=== PATIENT | male | born 1950 | race Caucasian/White ===

== ENCOUNTER 2018-02-06 06:26 | Inpatient (IN) ==
[2018-02-02 14:49] LABS: Appearance,Urine CLEAR; Bilirubin,Urine NEG (NEG); Color,Urine YELLOW; Glucose,Urine (UA) NEGATIVE (NEG); Leukocyte Esterase,Urine NEG /uL (NEG); Protein,Urine NEG (NEG); Specific Gravity,Urine 1.025 (1.000-1.035); Urine Blood NEG mg/dL (<0.03); Urobilinogen,Urine NEG (NEG)
[2018-02-02 15:59] LABS: Basophils # (Auto) 0.1 K/mcL (0.0-0.3); Basophils % (Auto) 0.7 % (0.0-2.0); Eosinophils # (Auto) 0.2 K/mcL (0.0-0.7); Eosinophils % (Auto) 3.2 % (0.0-7.0); Granulocytes % (Auto) 64.1 % (38.0-78.0); Lymphocytes # (Auto) 1.6 K/mcL (1.5-4.8); Lymphocytes % (Auto) 23.7 % (15.5-49.0); Mean Corpuscular HGB Conc 34.6 g/dL (31.0-36.0); Mean Corpuscular Hemoglobin 34.2 pg (26.0-34.0); Monocytes # (Auto) 0.6 K/mcL (0.1-0.9); Monocytes % (Auto) 8.3 % (1.0-12.0); Platelet Count 225 K/mcL (140-440); RBC 4.21 M/mcL (4.50-5.90); Red Cell Distribution Width 12.5 % (11.5-14.5)
[2018-02-02 17:13] LABS: Blood Urea Nitrogen 14 mg/dl (8-23)
[2018-02-06] MEDS ORDERED: CELECOXIB 200 MG CAPSULE PO SCH (07:00)
[2018-02-06] MEDS ORDERED: oxyCODONE 10 MG TAB.ER.12H PO SCH (07:00)
[2018-02-06] MEDS ORDERED: 0.9 % SODIUM CHLORIDE 9 ML, KETOROLAC 30 MG, ROPIVACAINE HCL/PF 49.5 ML, EPINEPHrine 0.... IJ SCH (07:00)
[2018-02-06] MEDS ORDERED: ceFAZolin 1 GM VIAL IV SCH (07:00)
[2018-02-06] MEDS ORDERED: PREGABALIN 75 MG CAPSULE PO SCH (07:00)
[2018-02-06] MEDS ORDERED: ONDANSETRON 4 MG/2 ML VIAL IV ONE (09:15)
[2018-02-06] MEDS ORDERED: fentaNYL 100 MCG/2 ML VIAL IV ONE (09:15)
[2018-02-06] MEDS ORDERED: ROPIVACAINE HCL/PF 20 ML VIAL IJ ONE (09:15)
[2018-02-06] MEDS ORDERED: LIDOCAINE HCL/PF 100 MG/5 ML SYRINGE IV ONE (09:15)
[2018-02-06] MEDS ORDERED: TRANEXAMIC ACID 1,000 MG/10 ML VIAL IV ONE ×2 (09:15→10:53)
[2018-02-06] MEDS ORDERED: PROPOFOL 200 MG/20 ML VIAL IV ONE (09:15)
[2018-02-06] MEDS ORDERED: MIDAZOLAM 5 MG/5 ML VIAL IV ONE (09:15)
[2018-02-06] MEDS ORDERED: DEXAMETHASONE 10 MG/ML VIAL IV ONE (09:15)
[2018-02-06] MEDS ORDERED: GLYCOPYRROLATE 0.2 MG/ML VIAL IV ONE (09:15)
[2018-02-06] MEDS ORDERED: PHENYLEPHRINE 10 MG/ML VIAL IV ONE (09:15)
[2018-02-06] MEDS ORDERED: GENTAMICIN SULFATE 800 MG/20 ML VIAL IR ONE (09:48)
[2018-02-06] MEDS ORDERED: BISACODYL 10 MG SUPP.RECT PR PRN (10:53)
[2018-02-06] MEDS ORDERED: MAGNESIUM HYDROXIDE 30 ML ORAL.SUSP PO PRN (10:53)
[2018-02-06] MEDS ORDERED: ACETAMINOPHEN 325 MG TABLET PO PRN (10:53)
[2018-02-06] MEDS ORDERED: POLYETHYLENE GLYCOL 3350 17 GM PACKET PO PRN (10:53)
[2018-02-06] MEDS ORDERED: FLEETS ADULT ENEMA PR PRN (10:53)
[2018-02-06] MEDS ORDERED: METHOCARBAMOL 750 MG TABLET PO PRN (10:53)
[2018-02-06] MEDS ORDERED: ONDANSETRON 4 MG/2 ML VIAL IV PRN (10:53)
[2018-02-06] MEDS ORDERED: BENZOCAINE/MENTHOL 1 LOZENGE PO PRN (10:53)
[2018-02-06] MEDS ORDERED: ONDANSETRON ODT 4 MG TABLET SL PRN (10:53)
--- NOTE | 2018-02-06 10:53 | Brief Operative Note ---
Date of procedure: 02/06/18 Pre-op diagnosis: right knee osteoarthritis Post-op diagnosis: same Procedure: right total knee arthroplasty Grafts/Implants: Yes Anesthesia: spinal Complications: none Surgeon: Trevor Wu Scale Installer: Riri Briceño Estimated blood loss (cc): 150 Tourniquet Time (Minutes): 60 Specimens Removed/Pathology: none sent Condition: stable Disposition: PACU
--- NOTE | 2018-02-06 11:11 | Operative Note ---
DATE OF OPERATION: 02/06/2018 PREOPERATIVE DIAGNOSIS: Degenerative joint disease, right knee. POSTOPERATIVE DIAGNOSIS: Degenerative joint disease, right knee. PROCEDURE: Right total knee arthroplasty. SURGEON: Lexis Wu M.D. FARMWORKER MACHINE SURGEON: Riri Briceño PA-C. ANESTHESIA: Spinal with LMA assist. ESTIMATED BLOOD LOSS: 150 mL. COMPLICATIONS: None noted. SPECIMENS REMOVED: None. DRAINS: None. TOURNIQUET TIME: 60 minutes at 300 mmHg. IMPLANTS: DePuy Attune femoral posterior stabilized size 8 right, cemented; DePuy Attune patella medialized dome 38 mm cemented AOX; DePuy Attune tibial fixed bearing size 7, cemented; DePuy Attune tibial insert fixed bearing posterior stabilized size 8, 10 mm AOX. INDICATIONS: The patient has had a long-standing history of worsening pain in the knee that has failed conservative treatment. Radiographs have confirmed advanced degenerative joint disease. After a long discussion about treatment options, the patient elected to proceed with a knee arthroplasty. The risks and benefits were discussed with the patient in detail including, but not limited to, the risks of anesthesia, problems with the heart or lungs related to anesthesia, infection, compromise or injury to the nerves and blood vessels, deep venous thrombosis, pulmonary embolism, pneumonia, continued pain after surgery, worsening pain or symptoms after surgery, swelling, loss of motion, instability, leg length discrepancy, and need for repeat surgery. DESCRIPTION OF PROCEDURE: The patient was seen in the pre-anesthesia waiting room where all questions were answered and the correct side and site were identified and marked. The patient was transferred to the operating room and administered the anesthetic and given pre-operative antibiotics. A time-out was then called. The extremity was prepped and draped, exsanguinated, and the tourniquet was inflated to 300 mmHg. A midline skin incision was then made with a standard medial parapatellar arthrotomy. Debridement of the menisci, ACL, and PCL was performed followed by balancing releases in the medial lateral plane. We then established intramedullary access to both the femur and tibia in a standard fashion. The femoral guide corky was initially placed with the distal femoral guide, pinned into place, and the distal femoral cut was performed and checked with a flat plate. We then turned our attention to the tibia. The intramedullary guide was placed with the proximal tibial cutting block. The block was appropriately positioned off the affected side, varus and valgus was checked with the extra-medullary guide, and the block was pinned into place. The proximal tibial cut was performed and the tibia was prepared for the tibial implant with appropriate rotation. The tibia, femur, and posterior compartment were debrided of osteophytes, loose bodies, and meniscal fragments We then used the gap balancing technique to balance extension with the first two cuts and good balancing was obtained with a 10 millimeter gap block. We turned our attention back to the femur and used the referencing block and implant to size appropriately. Using the gap balancing technique for the flexion space we set our rotation of the femur off the tibial cut. Anesthesia gave the patient 1 gram of Tranexamic Acid via an intravenous route. We placed the 4 in 1 cutting block and made anterior, posterior, and chamfer cuts. Box plasty cuts were then made in a standard fashion for the posterior stabilized prosthesis. We then completed osteophyte release and posterior capsule release from the posterior compartment. Trials were placed and we chose the polyethylene insert thickness that provided the best stability in all planes. With the trials in place, we did a measured resection for a resurfacing patella. We sized the patella and placed the patella trial and performed a lateral facetectomy with the saw and rongeur. Good tracking was obtained. We removed all trials, irrigated and dried all cut surfaces. We cemented the components into place including tibia, femur and patella. We placed a trial liner and held the knee in full extension with the patella compressed while the cement cured. We then removed all excess cement and placed the final polyethylene tibiofemoral component. Irrigation with 3 liters of antibiotic saline was then performed using jet-lavage. We let the tourniquet down and coagulated bleeding vessels. We injected a 100 cubic centimeter volume including Ropivacaine 49.25 cubic centimeters at 5 milligrams per cubic centimeter, Ketorolac 30 milligrams, and Epinephrine 0.5 milligrams into 100 cubic centimeters volume of normal saline. We closed the retinaculum with #2 Stratafix and 0 Vicryl. We closed the subcutaneous tissue and skin in layers out to Dermabond on the skin. A sterile pressure dressing was applied. All needle and sponge counts were correct. The patient was transferred to the recovery room in stable condition. Fabiana Job ID: [id number] Doc ID: [id number] Lexis Wu MD
--- NOTE | 2018-02-06 11:56 | XRay Report ---
CLINICAL INFORMATION: Post-Op Total Knee COMPARISON: None. FINDINGS: Total knee prostheses is anatomically aligned. No osseous normality. Soft tissues swelling gas seen as expected. IMPRESSION: Negative Interpreted and Authenticated by: Trevor Richardson 02/06/18
[2018-02-06] MEDS: KETOROLAC 30 MG/ML VIAL IV SCH ×2 (12:46→17:23)
[2018-02-06] MEDS: 0.9 % SODIUM CHLORIDE 10 ML SYRINGE IV SCH (13:34)
[2018-02-06] MEDS: HYDROcodone/APAP 10/325MG TABLET PO PRN ×2 (14:36→18:30)
[2018-02-06] MEDS: ceFAZolin 1 GM VIAL IV SCH (17:01)
[2018-02-06] MEDS: 0.9 % SODIUM CHLORIDE 1,000 ML IV SCH (17:01)
[2018-02-06] MEDS ORDERED: SENNOSIDES 1 TABLET PO SCH (21:00)
[2018-02-06] MEDS: ASPIRIN 325 MG ENTERIC COATED TABLET PO SCH (22:13)
[2018-02-06] MEDS: DOCUSATE SODIUM 100 MG CAPSULE PO SCH (22:13)
[2018-02-07] MEDS: HYDROcodone/APAP 10/325MG TABLET PO PRN ×3 (00:55→11:49)
[2018-02-07] MEDS: ceFAZolin 1 GM VIAL IV SCH (00:57)
[2018-02-07] MEDS: 0.9 % SODIUM CHLORIDE 1,000 ML IV SCH ×2 (01:19→06:39)
[2018-02-07] MEDS: 0.9 % SODIUM CHLORIDE 10 ML SYRINGE IV SCH ×2 (03:50→06:39)
[2018-02-07] MEDS: KETOROLAC 30 MG/ML VIAL IV SCH ×2 (03:58→06:10)
[2018-02-07] MEDS: DOCUSATE SODIUM 100 MG CAPSULE PO SCH (08:26)
[2018-02-07] MEDS: ASPIRIN 325 MG ENTERIC COATED TABLET PO SCH (08:26)
--- NOTE | 2018-02-07 10:33 | Discharge Summary ---
Providers - Providers Patient information: Note initiated : 02/07/18 at 10:31 am Service Date, if different from initiated Date: [] Patient: Ferny Jean 67 y/o M admitted on 02/06/18 for Right Total Knee Arthroplasty. Chief Complaint: [POD #1 right TKA Doing very well. No nausea, chest pain, SOB, numbness, tingling, calf pain. Ambulating well. Minimal pain] Discharge date: 02/07/18 Hospitalization Hospital course: Patient was brought to OR on 02/06/18 for right total knee arthroplasty which went on without complication or event. He was admitted overnight for post operative pain management and observation. His stay was without event. He will follow up in 10-14 days for post operative care and discharge to home today. Discharge diagnosis: knee osteoarthritis Exam - Exam Incision healing: Yes Incision draining: No Incision red: No Incision swollen: No Incision inflamed: No Clean and dry: Yes Weight bearing status: as tolerated Range of motion: full foot and ankle. DP/PT 2+ b/l. NVI Ortho Discharge - TKA - Patient Instructions Diet: Regular Diet Activity: weight bearing as tolerated Total Knee Protocol: For Total Knee: Start ROM SARAH with stationary bike or rocking chair. Work on gaining full extension of knee. Posterior dislocation precautions provided. Hip abductor strengthening and gait training instructions provided. Apply Cryocuff as instructed. Dressing Care: May shower in 2 days, Other (dermabond) Patient Education: Total Knee Replacement (DC) Additional Instructions: Discharge Instructions: Do the exercises at home that physical therapy gave you throughout the day. Weight bearing as tolerated. Wear comfortable clothing for physical therapy. You are scheduled to start physical therapy at [facility] in [place] ) on Feb.10 at 10:15 am, please arrive 15 minutes early for paperwork. Take your prescription, photo ID, insurance cards, and current medication list with you to your first physical therapy appointment. Take your prescription to last picker any medication. You have Dermabond (a dressing with a mesh-like appearance), DO NOT remove mesh. Cover site daily with gauze dressing. You may start showering on post op day #2. The Dermabond dressing can get wet, do not scrub dressing. Pat dry, then place new dressing (above). To avoid constipation while taking any narcotic pain medication, take an over the counter stool softener/laxative. Use your Cryocuff or ice packs as directed, on for 20 minutes at a time throughout the day. This and elevation will help with pain and swelling. Call your physician for fevers above 100.5 or pain not controlled by medication. Your prescriptions are with your discharge information. Some medications were electronically transmitted to your pharmacy of choice. Take Aspirin twice daily, for 30 days, as prescribed to prevent blood clots ( see medication list). - Follow Up Plan Follow Up Appointments: Riri Briceño PA-C [Physician Rigging Engineer] - 02/20/18 11:00 am Disposition: Home, Self-Care Prognosis: Good Rehab Potential: Good I certify that the patient requires SNF services: No Overall status at discharge: patient is progressing back to baseline - Orders For Discharge Prescriptions: Aspirin [Ecotrin] 325 mg PO BID #60 tab.ec HYDROcodone/APAP 10/325MG [[place] 10-325Mg] 1 - 2 tab PO Q4HP PRN #60 tab PRN Reason: Pain Level 3-6 Additional Discharge Orders: Physical Therapy at Discharge - TKA Location: None Selected Pending Studies Resuscitation Status Full Code Diet Regular Diet Start FriFeb 06 1054 Hydrocodone Bitart/Acetaminophen ([place] 10/325mg) 0 tab PO Q4HP PRN PRN Reason: PAIN LEVEL 3-6 Last Admin: 02/07/18 06:39 Dose: 2 tab Admin: 02/07/18 00:55 Dose: 2 tab Admin: 02/06/18 18:30 Dose: 2 tab Admin: 02/06/18 14:36 Dose: 2 tab Aspirin (Ecotrin) 325 mg PO BID [facility] Last Admin: 02/07/18 08:26 Dose: 325 mg Admin: 02/06/18 22:13 Dose: 325 mg Docusate Sodium (Colace) 100 mg PO BID [facility] Last Admin: 02/07/18 08:26 Dose: 100 mg Admin: 02/06/18 22:13 Dose: 100 mg Sodium Chloride (Sodium Chloride 0.9%) 1,000 mls @ 125 mls/hr IV .Q8H [facility] Last Admin: 02/07/18 06:39 Dose: Not Given Infusion: 02/07/18 06:20 Dose: 0 mls/hr Admin: 02/07/18 01:19 Dose: 125 mls/hr Infusion: 02/07/18 01:01 Dose: 0 mls/hr Admin: 02/06/18 17:01 Dose: 125 mls/hr Ketorolac Tromethamine (Toradol) 30 mg IV Q6 [facility] Stop: 02/08/18 06:01 Last Admin: 02/07/18 06:10 Dose: 30 mg Admin: 02/07/18 03:58 Dose: Admin: 02/06/18 17:23 Dose: 30 mg Admin: 02/06/18 12:46 Dose: 30 mg Methocarbamol (Robaxin) 750 mg PO Q6HP PRN PRN Reason: Muscle Spasm Last Admin: 02/07/18 00:56 Dose: 750 mg Senna (Senokot) 2 tab PO HS [facility] Last Admin: 02/06/18 22:13 Dose: 2 tab Sodium Chloride (Saline Flush) 10 ml IV Q8 [facility] Last Admin: 02/07/18 06:39 Dose: Not Given Admin: 02/07/18 03:50 Dose: Not Given Admin: 02/06/18 13:34 Dose: Not Given Shift Summary 02/07/18 04:55 Shift Summary by Enoch Davidson Pt OOB with gaite belt and walker to BR using urinal; right knee better overnight without buckling. CPM from 22:00 to 00:00 at 45 degrees, tolerated well with report of 2/10 pain, gave only norco and robaxan at midnight for pain 2/10; scheduled toradol will be given at 06:00. This is the patients second knee replacement so he is familiar with what is required for recovery. has stayed with pt in room overnight; no N/V; no tingling/numbness; voiding well with x2 PVR's less than 150mLs. Initialized on 02/07/18 04:55 - END OF NOTE
== END 2018-02-07 11:50 | disposition home or self-care (01) | DRG 470 ==
LOC: MEDSUR 06:26
PROVIDERS: ADMIT Orthopaedic Surgery Sports Medicine; ATTEND Orthopaedic Surgery Sports Medicine
CPT/HCPCS: 62322; 97161; C1776; J0171; J0690; J1100; J1580; J1885; J2001; J2250; J2370; J2405; J2795; J3010; J7030; J7050; J7120

== ENCOUNTER 2018-03-26 18:11 | Inpatient (IN) ==
[~2018-03-26 18:11] MED LIST: CELECOXIB 200 MG CAPSULE PO SCH; PREGABALIN 75 MG CAPSULE PO SCH; ceFAZolin 1 GM VIAL IV SCH; oxyCODONE 10 MG TAB.ER.12H PO SCH
[2018-03-26 19:14] LABS: Basophils # (Auto) 0 K/mcL (0.0-0.3); Basophils % (Auto) 0.7 % (0.0-2.0); Eosinophils # (Auto) 0.3 K/mcL (0.0-0.7); Eosinophils % (Auto) 4.7 % (0.0-7.0); Granulocytes % (Auto) 55.2 % (38.0-78.0); Lymphocytes # (Auto) 1.6 K/mcL (1.5-4.8); Lymphocytes % (Auto) 27.4 % (15.5-49.0); Mean Cell Volume 96.2 fL (80.0-100.0); Mean Corpuscular HGB Conc 33.1 g/dL (31.0-36.0); Monocytes # (Auto) 0.7 K/mcL (0.1-0.9); Platelet Count 256 K/mcL (140-440); RBC 3.59 M/mcL (4.50-5.90); Red Cell Distribution Width 13.6 % (11.5-14.5)
[2018-03-26 19:34] LABS: Blood Urea Nitrogen 20 mg/dl (8-23)
[2018-03-26] MEDS ORDERED: DEXAMETHASONE 10 MG/ML VIAL IV ONE (22:15)
[2018-03-26] MEDS ORDERED: LIDOCAINE HCL/PF 100 MG/5 ML SYRINGE IV ONE (22:15)
[2018-03-26] MEDS ORDERED: TRANEXAMIC ACID 1,000 MG/10 ML VIAL IV ONE ×3 (22:15→23:46)
[2018-03-26] MEDS ORDERED: MIDAZOLAM 5 MG/5 ML VIAL IV ONE (22:15)
[2018-03-26] MEDS ORDERED: PROPOFOL 200 MG/20 ML VIAL IV ONE (22:15)
[2018-03-26] MEDS ORDERED: GLYCOPYRROLATE 0.2 MG/ML VIAL IV ONE (22:15)
[2018-03-26] MEDS ORDERED: ROPIVACAINE HCL/PF 20 ML VIAL IJ ONE (22:15)
[2018-03-26] MEDS ORDERED: fentaNYL 100 MCG/2 ML VIAL IV ONE (22:15)
[2018-03-26] MEDS ORDERED: KETAMINE 100 MG/ML ML IV ONE (22:15)
[2018-03-26] MEDS ORDERED: PHENYLEPHRINE 10 MG/ML VIAL IV ONE (22:15)
[2018-03-26] MEDS ORDERED: ONDANSETRON 4 MG/2 ML VIAL IV ONE (22:15)
[2018-03-26] MEDS ORDERED: TOBRAMYCIN SULFATE 1.2 GM VIAL TOPICAL ONE (22:56)
[2018-03-26] MEDS ORDERED: VANCOMYCIN 1 GM VIAL TOPICAL SCH (23:00)
[2018-03-26] MEDS ORDERED: GENTAMICIN SULFATE 800 MG/20 ML VIAL IR ONE (23:00)
[2018-03-26] MEDS ORDERED: ONDANSETRON 4 MG/2 ML VIAL IV PRN ×2 (23:04→23:41)
[2018-03-26] MEDS ORDERED: METHOCARBAMOL 750 MG TABLET PO PRN (23:04)
[2018-03-26] MEDS ORDERED: FLEETS ADULT ENEMA PR PRN (23:04)
[2018-03-26] MEDS ORDERED: BENZOCAINE/MENTHOL 1 LOZENGE PO PRN ×2 (23:04→23:41)
[2018-03-26] MEDS ORDERED: POLYETHYLENE GLYCOL 3350 17 GM PACKET PO PRN (23:04)
[2018-03-26] MEDS ORDERED: MAGNESIUM HYDROXIDE 30 ML ORAL.SUSP PO PRN (23:04)
[2018-03-26] MEDS ORDERED: BISACODYL 10 MG SUPP.RECT PR PRN (23:04)
--- NOTE | 2018-03-26 23:05 | Brief Operative Note ---
Pre-op diagnosis: right knee infection s/p tka Post-op diagnosis: same Procedure: right knee revision polyethylene liner, irrigation and debridement with antibiotic bead placement Grafts/Implants: Yes Anesthesia: GETA Findings: fibrous tissue, granulation, fluid, no obvious prurelent drainage Complications: none Surgeon: Trevor Wu Antenna Machine Operator: Riri Briceño Estimated blood loss (cc): 50 Tourniquet Time (Minutes): 26 Specimens Removed/Pathology: other (microgen dna sequencing) Condition: stable Disposition: PACU
[2018-03-26] MEDS ORDERED: VANCOMYCIN 1,000 MG in 0.9 % SODIUM CHLORIDE 250 ML IV SCH (23:15)
[2018-03-26] MEDS ORDERED: fentaNYL 100 MCG/2 ML VIAL IV PRN (23:41)
[2018-03-26] MEDS ORDERED: IPRATROPIUM/ALBUTEROL 3 ML AMPUL.NEB NEB PRN (23:41)
[2018-03-26] MEDS ORDERED: NALOXONE HCL 0.4 MG/ML VIAL IV PRN (23:41)
[2018-03-26] MEDS ORDERED: METHOCARBAMOL 1,000 MG/10 ML VIAL IV PRN (23:41)
[2018-03-26] MEDS ORDERED: MEPERIDINE 25 MG/ML SYRINGE IV PRN (23:41)
[2018-03-26] MEDS ORDERED: LACTATED RINGERS 250 ML IV PRN (23:41)
[2018-03-26] MEDS ORDERED: FLUMAZENIL 0.1 MG/ML ML IV PRN (23:41)
[2018-03-26] MEDS ORDERED: ACETAMINOPHEN 1,000 MG/100 ML BOTTLE IV ONE ×2 (23:41→23:50)
[2018-03-26] MEDS ORDERED: HYDROmorphone 2 MG/ML VIAL IV PRN (23:41)
[2018-03-26] MEDS ORDERED: LACTATED RINGERS 1,000 ML IV SCH (23:45)
[2018-03-27] MEDS: 0.9 % SODIUM CHLORIDE 1,000 ML IV SCH ×2 (01:12→09:35)
[2018-03-27] MEDS ORDERED: 0.9 % SODIUM CHLORIDE 10 ML SYRINGE IV PRN (05:12)
[2018-03-27] MEDS ORDERED: 0.9 % SODIUM CHLORIDE 10 ML SYRINGE IV SCH ×2 (06:00→09:00)
[2018-03-27] MEDS: HYDROcodone/APAP 10/325MG TABLET PO PRN ×2 (07:41→12:11)
--- NOTE | 2018-03-27 08:24 | Operative Note ---
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 PROCEDURE: 1. Arthrotomy with irrigation and debridement of right total knee arthroplasty. 2. Right total knee arthroplasty antibiotic bead placement. 3. Right total knee arthroplasty revision of polyethylene liner. SURGEON: Lexis Wu M.D. CHILDREN'S BOOK AUTHOR SURGEON: Riri Briceño PA-C ANESTHESIA: Spinal with LMA assist. ESTIMATED BLOOD LOSS: 100 mL COMPLICATIONS: None noted. SPECIMENS REMOVED: Microgen DNA sequencing with fluid and tissue culture. DRAINS: Medium Hemovac x 1. TOURNIQUET TIME: 26 minutes @ 300 mmHg. IMPLANTS: DePuy Attune tibial insert fixed bearing posterior stabilized size 8, 10 mm AOX, Stimulon BioComposite beads 20 mL with vancomycin and gentamycin. INDICATIONS: The patient had a total knee arthroplasty done 6 weeks ago. He has had increasing pain and swelling, and aspirate demonstrated a probable infected total knee arthroplasty. At this point we elected to proceed with the above surgery to try to do a 1-stage procedure. The risks and benefits were discussed with the patient in detail including, but not limited to, the risks of anesthesia, problems with the heart or lungs related to anesthesia, infection, compromise or injury to the nerves and blood vessels, deep venous thrombosis, pulmonary embolism, pneumonia, continued pain after surgery, worsening pain or symptoms after surgery, swelling, loss of motion, instability, leg length discrepancy, and need for repeat surgery. DESCRIPTION OF PROCEDURE: The patient was seen in the pre-anesthesia waiting room where all questions were answered and the correct side and site were identified and marked. The patient was transferred to the operating room and administered the anesthetic and given pre-operative antibiotics. A timeout was then called. The extremity was prepped and draped and the tourniquet was inflated to 300 mmHg. We made a midline skin incision and a standard medial parapatellar arthrotomy. We used Microgen DNA cultures from the fluid in the knee as we opened up the knee joint. We also took cultures from underneath the polyethylene and posterior aspect of the knee and the gutters. We removed the polyethylene liner. There was a moderate amount of fibrinous tissue throughout the synovial and thickening of the synovium and moderate fluid but no overt infection. I removed all the fibrinous area from the synovium with ring curettes and rongeurs. We thoroughly irrigated with gentamycin saline 9 liters under Jet lavage. We used IrriSept. We then replaced the liner and placed an Attune tibial fixed bearing posterior stabilized size 8, 10 mm AOX liner. We used the Stimulon beads with vancomycin and gentamycin. These were placed in the deep space and in the superficial space. A drain was placed in the deep space. We closed the retinaculum with #2 Stratafix and #0 Monocryl. We closed the subcutaneous tissue and skin in layers out to delma on the skin. A sterile pressure dressing was applied. All needle and sponge counts were correct. The patient was transferred to the recovery room in stable condition. ROGER:jeffy Job ID: [id number] Doc ID: [id number] Lexis Wu MD
--- NOTE | 2018-03-27 08:45 | Orthopedic Progress Note ---
Subjective Patient information: Note initiated : 03/27/18 at 8:44 am Service Date, if different from initiated Date: [] Patient: Ferny Jean 67 y/o M admitted on 03/26/18 for Right Knee I&D with Liner Exchange and ABO Bead. Chief Complaint: [] Interval history: doing well today. no complaints Objective Vital signs: Vital Signs Temp Pulse Resp BP Pulse Ox 03/27/18 06:43 97.3 F 16 120/72 95 03/27/18 03:46 97.6 F 77 16 132/79 96 03/27/18 01:09 94 03/27/18 00:58 70 115/71 96 03/27/18 00:43 68 117/69 95 03/27/18 00:28 74 114/67 95 03/27/18 00:11 97.4 F 76 16 118/69 94 03/27/18 00:03 97.0 F 82 18 124/61 96 03/26/18 23:52 82 14 115/64 96 03/26/18 23:37 75 19 106/58 99 03/26/18 23:32 71 16 106/58 98 03/26/18 23:27 72 17 110/57 98 03/26/18 23:22 97.2 F 73 16 120/60 98 03/26/18 18:44 98.3 F 82 20 147/83 96 03/26/18 18:31 98.3 F 82 20 147/83 96 Intake and Output 03/26/18 03/27/18 03/27/18 21:59 05:59 13:59 Intake Total 1550 Output Total 896 250 Balance 654 -250 Intake: IV 100 Oral 0 IV - Manual Only 1450 Output: Drainage 0 Right Knee ABRAHAM Drain 0 Urine Catheter Amount 875 Void Amount 250 # of times incontinent of urine 1 Estimated Blood Loss 20 Other: Urine Appearance Clear Urine Color Pale Urine Odor Normal Weight 212 lb Intake & Output: Intake & Output 03/26/18 03/27/18 03/27/18 21:59 05:59 13:59 Intake Total 1550 Output Total 896 250 Balance 654 -250 Weight 212 lb Intake: IV 100 Oral 0 IV - Manual Only 1450 Output: Drainage 0 Right Knee ABRAHAM Drain 0 Urine Catheter Amount 875 Void Amount 250 # of times incontinent of urine 1 Estimated Blood Loss 20 Other: Urine Appearance Clear Urine Color Pale Urine Odor Normal Incision: Yes healing Incision clean and dry: Yes Dressing: Yes clean, Yes dry, Yes intact Weight bearing status: full Neurological exam IM: Yes alert, Yes normal gait, Yes oriented X3, Yes motor sensory intact, Yes neurovascular intact Extremities exam IM: No calf tenderness, Yes Foot pink and warm, Yes neurovascular intact - Labs CBC & BMP: 03/27/18 05:00 03/26/18 18:38 Labs: Orthopedic Labs 03/26/18 18:38 POC PT 13.2 PT 13.2 POC INR 1.1 INR 1.0 03/27/18 03/26/18 05:00 18:38 Hgb 10.9 L 11.4 L Hct 32.4 L 34.6 L Assessment and Plan (1) 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
--- NOTE | 2018-03-27 08:46 | Discharge Summary ---
Ortho Discharge - TKA - Patient Instructions Diet: Regular Diet Activity: activity as tolerated, ambulate with assistive device, weight bearing as tolerated Total Knee Protocol: For Total Knee: Start ROM SARAH with stationary bike or rocking chair. Work on gaining full extension of knee. Posterior dislocation precautions provided. Hip abductor strengthening and gait training instructions provided. Apply Cryocuff as instructed. Dressing Care: May shower in 2 days, Aquacel Ag - leave on for 5 days - Problem Maintenance (1) Infection of total joint prosthesis Status: Acute - Follow Up Plan Disposition: Home, Self-Care Prognosis: Good Rehab Potential: Good I certify that the patient requires SNF services: No Overall status at discharge: patient is progressing back to baseline
[2018-03-27] MEDS ORDERED: ASPIRIN 325 MG ENTERIC COATED TABLET PO SCH (09:00)
[2018-03-27] MEDS ORDERED: DOCUSATE SODIUM 100 MG CAPSULE PO SCH (09:00)
[2018-03-27] MEDS ORDERED: RIFAMPIN 300 MG CAPSULE PO SCH (10:00)
[2018-03-27] MEDS ORDERED: VANCOMYCIN 1,000 MG in 0.9 % SODIUM CHLORIDE 250 ML IV ONE (10:00)
[2018-03-27] MEDS ORDERED: SENNOSIDES 1 TABLET PO SCH (21:00)
== END 2018-03-27 13:05 | disposition home or self-care (01) | DRG 487 ==
LOC: MEDSUR 18:11
PROVIDERS: ADMIT Orthopaedic Surgery Sports Medicine; ATTEND Orthopaedic Surgery Sports Medicine